=== PATIENT | female | born 1985 ===

== ENCOUNTER → 2018-08-03 | Outpatient (CLI) | payer BC | LOC: LAB 08:52 → LAB SHORT 08:52 → LAB FUT 07-29 17:05 | DX: K21.9 Gastro-esophageal reflux disease without esophagitis (principal) | CPT/HCPCS: 87338 ==

== ENCOUNTER → 2020-08-21 | Outpatient (CLI) | payer BC | END | disposition home or self-care (01) | LOC: LAB SHORT 14:00 → LAB 14:00 | DX: B02.9 Zoster without complications (principal) | CPT/HCPCS: 87798 ==